=== PATIENT | male | born 1985 | race Caucasian/White ===

== ENCOUNTER 2024-09-16 11:48 | Emergency (ER) | payer SELFPAY ==
[~2024-09-16] VITALS: Ht 175.3 cm; Wt 110.2 kg
[2024-09-16] MEDS: LIDOCAINE HCL 1% 20 ML VIAL INJ ONE (13:50)
[2024-09-16] MEDS: teTANUS/diphthERIA TOXOID [ADULT] 0.5 ML VIAL IM ONE (13:53)
--- NOTE | 2024-09-16 13:53 | ERN ---
ED Note History of Present Illness Stated Complaint: LACERATION RIGHT HAND Chief Complaint: Laceration/Avulsion Time Seen by MD: 12:34 Dictation: 39-year-old male presents to the ED for evaluation of right palm laceration onset [employer]IST. Patient reports he got cut with a piece of metal while washing his car and believes it was probably the chrome coating in the back of the bumper that was sticking out. Allergies: Coded Allergies: No Known Drug Allergies (Unverified Allergy, Unknown, 09/16/24) Past Medical History Past Medical History: No Pertinent History Surgical History: None RN Note Reviewed/Agreed w/PFSH: Yes Review of System Dictation Constitutional: Negative for fever,chills, and weight loss Eyes: Negative for injury, pain,redness, and discharge ENT: Negative for injury,pain or swelling Cardiovascular: Negative for chest pain, palpitations, and edema Respiratory: Negative for shortness of breath, cough, and wheezing, Abdomen/GI: Negative for abdominal pain, nausea, vomiting, diarrhea, and constipation Back: Negative for injury and pain : Negative for injury, bleeding and discharge MS/Extremity: Positive for right palm laceration Negative for injury and deformity Skin: Negative for rash, and discoloration Neuro: Negative for headache, weakness, numbness, tingling, and seizure Psych: Negative for suicide ideation, homicidal ideation, and hallucinations Initial Vital Sign VS Vital Signs Date Time Temp Pulse Resp B/P (MAP) Pulse Ox O2 Delivery O2 Flow Rate FiO2 09/16/24 12:06 98.1 73 18 156/99 97 Room Air 0 Physical Exam Dictation General: awake, alert, NAD Head/Face: Normocephalic, atraumatic Eyes: PERRL, EOMI, vision at baseline ENT: oral cavity clear, TMs clear, no signs of infection Neck: Trachea midline, supple, no nuchal rigidity Cardiovascular: RRR, normal S1/S2, No MRGs, no JVD Respiratory: CTAB, no respiratory distress, No rales or wheezes Abdomen: Soft, non-tender, non-distended, normal bowel sounds, no guarding or rebound. Skin: Warm, dry, normal turgor, no rash MS/Extremity: Pulses equal, no cyanosis, neurovascular intact, FROM, right palm 4 cm laceration, no active bleeding Neuro: COAx4, GCS 15, strength 5/5, CN 2-12 intact, normal cerebellar exam, normal gait, Psych: Normal behavior, mood, and affect normal Results (Laboratory/Radiology) Laboratory/Radiology REASON: injury ORDERING PHYSICIAN: CT MOCTEZUMA MD PROCEDURE: HAND 3V RT - HAND 3+VWS RT HAND 3+VWS RT INDICATION: injury TECHNIQUE: HAND 3+VWS RT. FINDINGS AND IMPRESSION: No displaced fracture or dislocation is seen. Correlate clinically. There is diffuse soft tissue swelling No radiopaque foreign body is identified. Labs Reviewed?: Yes ED Course ED Course Orders Procedure Category Date Status Time Hand 3+Vws Rt RAD 09/16/24 Resulted 13:05 Tetanus,Diphtheria PHA 09/16/24 Complete Tox [Adult] (Diphther 13:30 Lidocaine Hcl 1% 20ml PHA 09/16/24 Complete Vial (Lidocaine Hc 13:30 Current Medications Medications (Trade) Dose Ordered Sig/Kimberly Route PRN Reason Start Time Stop Time Status Last Admin Dose Admin Lidocaine HCl (Lidocaine HCl 1% 20ml Vial) 10 ml ONCE ONCE INJ 09/16/24 13:30 09/16/24 13:31 DC 09/16/24 13:50 Tetanus/ Diphtheria Toxoids Adsorbed (DiphthERIA-teTANUS TOXOID [ADULT]/ DECAVAC) 0.5 ml ONCE ONCE IM 09/16/24 13:30 09/16/24 13:31 DC 09/16/24 13:53 Vital Signs Date Time Temp Pulse Resp B/P (MAP) Pulse Ox O2 Delivery O2 Flow Rate FiO2 09/16/24 12:06 98.1 73 18 156/99 97 Room Air 0 Medical Decision Making MDM MDM: 39-year-old male presents to the ED for evaluation of right palm laceration onset [employer]. Patient reports he got cut with a piece of metal while washing his car and believes it was probably the chrome coating in the back of the bumper that was sticking out. Differential diagnosis: Right hand laceration, laceration repair Laceration repaired performed in ER beer patient tolerated well. Rationale: Tests considered and ordered secondary to shared decision making include: Previous outside records reviewed: Old ER visits. Risk of complication and/or morbidity or mortality of patient management: None Medications-Per medication reconciliation Need for hospitalization: Patient does not meet criteria for hospitalization. Need for emergency major/minor surgery: No There are no social concerns with this patient. Prescription drug management Prescriptions will include symptomatic care Patient's prior external medical records from other ER visits were reviewed by me as indicated. Prior testing and results from previous visits were reviewed. Prior tests were taken into account with medical decision making and resource utilization, independent historian/historians were used to obtain complete medical history. I independently interpreted the test that were performed, results were reviewed by me and considered findings on radiology if ordered. Medical management and examination interpretation discussions were had by me with other qualified healthcare professionals as indicated for the patient's care. Procedure Procedure Dictation: Time and Date Performed: 09/16/2024 INDICATION: Laceration Location: Right palm Informed consent was obtained. Yes Pre-procedure time out was obtained. Anesthetic: 1% lidocaine Manual prep of skin and wound was done with hibiclens. Foreign Body: NO foreign bodies were identified. Length Repaired:4cm Suture used: Ethilon five # of simple sutures: Seven Aseptic technique was used during the entire procedure. Wound Location: upper extremity Wound's Depth, Shape: irregular Wound Explored: clean Betadine Prep?: Yes Anesthesia: 1% Lidocaine Wound Debrided: minimal Wound Repaired With: sutures Suture Size/Type: 5:0, nylon Number of Sutures: 7 DX & DISP Disposition: Discharge Departure Impression: Primary Impression: Laceration of right hand Condition: Stable Scripts Cephalexin Monohydrate (Keflex) 500 Mg Cap 500 MG PO QID for 5 Days, #20 CAP Prov: ARASELI MAHONEY [employer] DEVELOPER 09/16/24 Additional Instructions: Keep your stitches clean and dry. Do not put your stitches under water, such as in a bath, pool, or camacho. This can slow healing and raise your chance of getting an infection. Avoid activities or sports that could hurt the area of your stitches for 1-2 weeks. You should call your doctor if you develop any fever, redness or swelling around the cut, or pus draining from the cut. Your sutures will need to be removed in 10-14 days. FOLLOW-UP WITH PRIMARY CARE PROVIDER IN 1 TO 2 DAYS. TAKE MEDICATIONS DI RECTED HERE IN THE EMERGENCY ROOM. OKAY TO CONTINUE HOME MEDICATIONS UNLESS OTHERWISE DISCUSSED DURING YOUR VISIT IN THE EMERGENCY ROOM TODAY. RETURN TO YOUR NEAREST EMERGENCY ROOM IF SYMPTOMS WORSEN OR IF THERE IS NO IMPROVEMENT. CALL 911 IF YOU NEED IMMEDIATE ASSISTANCE. TAKE TYLENOL OR MOTRIN [id number] NEEDED AND IF NO CONTRAINDICATIONS ARE PRESENT. INCREASE ORAL HYDRATION. A WOUND CULTURE OR URINE CULTURE WAS ORDERED HERE IN THE EMERGENCY ROOM DEPARTMENT PLEASE FOLLOW-UP WITH PRIMARY CARE PROVIDER AND ADVISE THEM TO GET REPEAT PORTS FROM OUR FACILITY. IF YOU HAD ANY TRAM WRAP/SPLINTS THAT WERE APPLIED HERE, PLEASE DO NOT REMOVE THEM UNTIL YOU SEE YOUR PRIMARY CARE OR SPECIALTY. Referrals: SELF,REFERRAL (PCP) Time of Disposition: 14:37 I have examined patient, & reviewed all documents, & agreed W/ the Diagnosis, and Plan CT MOCTEZUMA MD Sep 16, 2024 13:52 ARASELI MAHONEY Sep 16, 2024 14:39
--- NOTE | 2024-09-16 14:06 | HMCIMG ---
HAND 3+VWS RT INDICATION: injury TECHNIQUE: HAND 3+VWS RT. FINDINGS AND IMPRESSION: No displaced fracture or dislocation is seen. Correlate clinically. There is diffuse soft tissue swelling No radiopaque foreign body is identified.
--- NOTE | 2024-09-16 14:09 | NUR ---
SUTURE REPAIR: LACERATION TRAY SET UP SIZE 6 STERILE GLOVES SALINE FOR IRRIGATION BETADINE CHUX PAD LIDOCAINE A VARIETY OF SUTURES AT BEDSIDE ALL ON A BEDSIDE TABLE.
[2024-09-16] MEDS ORDERED: CEPH500B PO (14:38)
--- NOTE | 2024-09-16 14:45 | NUR ---
SUTURE REPAIR: ARASELI AZAR HAS SUTURED PTS WOUND CLSOED POST CLEANSING IT.
[2024-09-16 14:56] VITALS: BP 126/86; PULSE 82; RESP 17; TEMP 98.6
--- NOTE | 2024-09-16 14:57 | NUR ---
non adherent with coband placed
== END 2024-09-16 15:04 | disposition home or self-care (01) ==
LOC: EDH 11:48
DX: S61.411A Laceration without foreign body of right hand, initial encounter (principal); W26.8XXA Contact with other sharp object(s), not elsewhere classified, initial encounter; Y93.89 Activity, other specified; Y92.89 Other specified places as the place of occurrence of the external cause; Y99.8 Other external cause status
CPT/HCPCS: 12002; 73130; 90471; 90714; 99284